=== PATIENT | male | born 1980 | race African-American/Black ===

== ENCOUNTER 2018-09-22 11:32 | Emergency (ER) | payer SELFPAY ==
--- NOTE | 2018-09-23 07:19 | RAD ---
Chest one view HISTORY: Dyspnea. FINDINGS: Cardiac silhouette is magnified by projection. Pulmonary vasculature is unremarkable. Media stinum is midline. No lobar consolidation or evidence of pneumothorax. IMPRESSION: No active cardiopulmonary abnormalities are demonstrated.
== END 2018-09-22 14:30 | disposition home or self-care (01) ==
LOC: ERS 11:32
DX: J45.901 Unspecified asthma with (acute) exacerbation (principal); F17.210 Nicotine dependence, cigarettes, uncomplicated; Z79.51 Long term (current) use of inhaled steroids
CPT/HCPCS: 71045; 94640; J7620

== ENCOUNTER 2018-10-15 23:16 | Emergency (ER) | payer SELFPAY ==
--- NOTE | 2018-10-15 23:46 | RAD ---
EXAM: Chest Two Views 10/15/2018 11:43 PM HISTORY: Shortness of breath and fever COMPARISON: None. FINDINGS: Heart: Normal in size and contour. Pulmonary vessels: Normal. Costophrenic angles: Clear. Lungs: Hyperinflated but clear Pneumothorax: None. Osseous structures:Intact. Additional findings: None. IMPRESSION: Hyperinflation without acute infiltrate.
[2018-10-16] MEDS ORDERED: predniSONE 20 MG TAB ONE (00:28)
== END 2018-10-16 00:50 | disposition home or self-care (01) ==
LOC: ERS 23:16
DX: J45.901 Unspecified asthma with (acute) exacerbation (principal); Z79.51 Long term (current) use of inhaled steroids
CPT/HCPCS: 71046; 94640; J7512; J7620

== ENCOUNTER 2019-02-15 21:16 | Inpatient (IN) | payer SELFPAY ==
[2019-02-15] MEDS ORDERED: Albuterol Sulfate 2.5 mg/3 ml Neb ONE ×5 (21:25→22:10)
[2019-02-15] MEDS ORDERED: methylPREDNISolone Sod Succ/PF 125 MG/2 ML VIAL ONE (21:26)
[2019-02-15] MEDS ORDERED: Succinylcholine Chloride 20 MG/ML 10 ml SYRINGE FS ONE (21:34)
[2019-02-15] MEDS ORDERED: Ketamine 50 MG/ML (10ML VIAL) ONE (21:36)
[2019-02-15] MEDS ORDERED: Vecuronium 10 MG VIAL ONE ×2 (21:36→22:22)
[2019-02-15] MEDS ORDERED: Magnesium 2 GM/50 ML BAG (IN WATER) ONE ×2 (21:46→22:10)
[2019-02-15] MEDS ORDERED: EPINEPHrine 1 MG/ML AMP ONE (21:51)
[2019-02-15 21:59] LABS: #Basophils 0.1 thou/uL (0.0-0.2); #Eosinphils 0.7 thou/uL (0.0-0.7); #Monocytes 1.1 thou/uL (0.11-0.59); #Neutrophils 6.4 thou/uL (1.40-6.50); %Basophils 0.9 % (0.0-1.0); %Eosinophils 5.6 % (0.0-10.0); %Lymphocytes 32.7 % (21.0-51.0); %Monocytes 9.2 % (0.0-10.0); %Neutrophils 51.7 % (42.0-75.0); Hemoglobin 15.5 g/dL (14.0-18.0); Mean Corpuscular HGB CONC 33.7 g/dL (32.0-36.0); Mean Corpuscular Hemoglobin 31.5 pg (27.0-31.0); Mean Corpuscular Volume 93.5 fL (78.0-98.0); Mean Platelet Volume 7.7 fL (7.4-10.4); Platelet Count 264 thou/uL (130-400); RBC Distribution Width 11.7 % (11.5-14.5); Red Blood Cell (RBC) Count 4.91 mill/uL (4.70-6.10); White Blood Cell (WBC) Count 12.3 thou/uL (4.8-10.8)
[2019-02-15] MEDS ORDERED: Sodium Bicarb 50 MEQ/50 ML VIAL ONE (22:08)
--- NOTE | 2019-02-15 22:10 | RAD ---
XR Chest 1 View Portable HISTORY: Shortness of breath. COMPARISON: None. FINDINGS: Heart size and mediastinum are within normal limits. The lungs are clear of infiltrates. Th ere are no significant bony findings. IMPRESSION: No active intrathoracic disease.
--- NOTE | 2019-02-15 22:11 | RAD ---
XR Chest 1 View Portable HISTORY: Intubation. Difficulty breathing COMPARISON: Earlier examination the same day. FINDINGS: Heart size and mediastinum are within normal limits for portable technique. The lungs are c lear of infiltrates. Endotracheal and NG tubes are in satisfactory position. IMPRESSION: Placement of endotracheal and NG tubes which are in satisfactory position.
[2019-02-15] MEDS ORDERED: Midazolam HCl 2 mg/2 ml Vial ONE (22:14)
[2019-02-15 22:21] LABS: ALT (SGPT) 40 U/L (8-55); AST (SGOT) 28 U/L (5-34); Albumin 5.1 g/dL (3.5-5.0); Alkaline Phosphatase 91 U/L (40-110); Anion Gap 13 mmol/L (10-20); BUN (Urea Nitrogen) 11 mg/dL (8.9-20.6); Bilirubin, Total 1.1 mg/dL (0.2-1.2); Calc. Creatinine Clearance 0 mL/min (70-130); Calcium 9.9 mg/dL (7.8-10.44); Carbon Dioxide 29 mmol/L (22-29); Chloride 102 mmol/L (98-107); Estimated GFR-MDRD Greater than 90; Globulin 3.3 g/dL (2.4-3.5); Glucose 96 mg/dL (70-105); Potassium 3.8 mmol/L (3.5-5.1); Protein, Total 8.4 g/dL (6.0-8.3); Sodium 140 mmol/L (136-145)
[2019-02-15 22:30] LABS: Bilirubin Negative (Negative); Blood, Urine Negative (Negative); Clarity Clear (Clear); Glucose, Urine (Dipstick) 70 mg/dL (Negative); Leukocyte Negative Leu/uL (Negative); Nitrite Negative (Negative); Protein, Urine (Dipstick) 10 mg/dL (Neg-Trace); Urobilinogen Normal mg/dL (Less than 2)
[2019-02-15] MEDS ORDERED: Vecuronium Bromide 50 MG in Sodium Chloride 0.9% 250 ML 250 ML IV SCH (22:30)
[2019-02-15] MEDS ORDERED: Propofol 1,000 MG/100 ML VIAL IV ONE (23:27)
[2019-02-15] MEDS ORDERED: Fentanyl BOLUS 250 ML IVPB PRN (23:36)
[2019-02-15] MEDS ORDERED: Propofol BOLUS 1,000 MG/100 ML VIAL IV PRN (23:36)
[2019-02-15] MEDS ORDERED: DISCONTINUE PREVIOUS NARCOTIC PAIN MEDICATIONS AND BENZODIAZEPINES FS SCH (23:36)
[2019-02-15] MEDS ORDERED: Morphine 2 MG/ML SYRINGE SLOW IVP PRN (23:36)
[2019-02-15] MEDS ORDERED: Famotidine/PF 20 mg/2ml Vial SLOW IVP SCH (23:45)
--- NOTE | 2019-02-16 | HP ---
HISTORY OF PRESENT ILLNESS: This is a 38-year-old male, who presented to the emergency room with extremely short of breath. He rapidly decompensated and he was intubated. I was consulted because of respiratory failure. There is no other history available. Reviewing old records, there are only old ER records available. PAST MEDICAL HISTORY: Reportedly remarkable for asthma. PAST SURGICAL HISTORY: There is no history of surgery. SOCIAL HISTORY: According to old records, he is a daily drinker and is an occasional smoker. FAMILY HISTORY: Negative for lung disease according to old records. ALLERGIES: HE HAS NO REPORTED ALLERGIES. MEDICATIONS: He has inhalers and a nebulizer at home per my discussion with the ER doctor, but medications are otherwise unknown. PHYSICAL EXAMINATION: VITAL SIGNS: When I arrived, his blood pressure was stable, but his heart rate was 130 as expected. He had an almost 6-second exhale time. GENERAL: He is chemically paralyzed and sedated. HEENT: Sclerae anicteric. NECK: Supple. LUNGS: Remarkable for extremely tight wheezes diffusely. HEART: Regular rhythm. Rapid rate. No gallop. ABDOMEN: Soft. No masses. No rigidity. EXTREMITIES: Without asymmetry or edema. NEUROLOGIC: Could not be assessed. Chest x-ray showed no infiltrates. IMPRESSION: Status asthmaticus with respiratory failure. PLAN: Plan will be for permissive hypercapnia and continuous paralysis. Lab work and blood gases have been reviewed. I would not repeat a blood gas until tomorrow morning. I was able to increase his inspiratory flow, increase his tidal volume, and increase his rate a little bit and I do believe he is completely exhaling at this time. He is on tidal volume of 400, rate of 15, inspiratory of 65, PEEP of 3, 50% FiO2. It is imperative that we keep him paralyzed. Reviewing the lab, there is nothing really remarkable on his lab other than hyperproteinemia, but he does not have an elevated globulin fraction. I suspect there is some component of intravascular volume depletion and I doubt his asthma just started today. I suspect he is significantly mucus plugged from several days of asthma, like most young people are when they present with severe asthma in the emergency room. I have recommended an additional 2 g of magnesium, giving him 4 g total. He will receive at least 2 L wide open of IV fluids in the emergency room and then receive 200 mL an hour of fluid. He will go upstairs on IV Medrol, q.2 hours nebulizer treatments and we will reassess him in the morning. Again, it is imperative that we keep him paralyzed and I have relayed this to the nurses. Job ID: [id number]
[2019-02-16] MEDS: Albuterol Sulfate 2.5 mg/3 ml Neb NEB SCH ×12 (00:31→22:10)
[2019-02-16] MEDS: Sodium Chloride 0.9% 1,000 ML IV SCH ×4 (00:43→17:31)
[2019-02-16 01:50] LABS: Lactic Acid 3.7 mmol/L (0.5-2.2)
[2019-02-16] MEDS: Lorazepam 2 MG/ML VIAL SLOW IVP PRN ×2 (03:14→07:58)
[2019-02-16 04:44] LABS: #Lymphocytes 0.9 thou/uL (1.20-3.40); #Monocytes 0.6 thou/uL (0.11-0.59); %Basophils 0.1 % (0.0-1.0); %Eosinophils 0.2 % (0.0-10.0); %Lymphocytes 4.7 % (21.0-51.0); %Monocytes 3.2 % (0.0-10.0); %Neutrophils 91.7 % (42.0-75.0); Hemoglobin 14.1 g/dL (14.0-18.0); Mean Corpuscular Hemoglobin 31.2 pg (27.0-31.0); Mean Corpuscular Volume 94.4 fL (78.0-98.0); Mean Platelet Volume 7.7 fL (7.4-10.4); Platelet Count 248 thou/uL (130-400); RBC Distribution Width 11.7 % (11.5-14.5); Red Blood Cell (RBC) Count 4.52 mill/uL (4.70-6.10); White Blood Cell (WBC) Count 19.7 thou/uL (4.8-10.8)
[2019-02-16] MEDS: Propofol 1,000 MG/100 ML VIAL IV PRN ×4 (04:44→17:43)
[2019-02-16] MEDS: methylPREDNISolone Sod Succ 40 MG VIAL IVP SCH ×4 (05:39→23:40)
[2019-02-16 06:01] LABS: Anion Gap 15 mmol/L (10-20); BUN (Urea Nitrogen) 8 mg/dL (8.9-20.6); Calc. Creatinine Clearance 133 mL/min (70-130); Calcium 7.7 mg/dL (7.8-10.44); Carbon Dioxide 22 mmol/L (22-29); Chloride 105 mmol/L (98-107); Estimated GFR-MDRD Greater than 90; Glucose 146 mg/dL (70-105); Potassium 4.1 mmol/L (3.5-5.1); Sodium 138 mmol/L (136-145)
[2019-02-16 07:17] LABS: Actual Bicarbonate (HCO3a) 23.1 mEq/L (22-28); Base Excess (BEa) -7.8 mEq/L (-2.0 to +3.0); O2 Tension (PaO2) 128.7 mmHg (80.0-100.0); Potassium - ABG Lab 4.75 mmol/L (3.70-5.30)
[2019-02-16 07:18] LABS: pH, Arterial 7.12 (7.35-7.45)
[2019-02-16 07:19] LABS: CO2 Tension 73.4 mmHg (35.0-45.0); Puncture Site RR
[2019-02-16] MEDS: Vecuronium Bromide 50 MG in Sodium Chloride 0.9% 250 ML 250 ML IV SCH ×2 (07:57→18:25)
[2019-02-16] MEDS: Enoxaparin Sodium 40 MG/0.4 ML SYRINGE SC SCH (07:58)
[2019-02-16] MEDS: Famotidine/PF 20 mg/2ml Vial SLOW IVP SCH ×2 (07:59→20:44)
--- NOTE | 2019-02-16 09:15 | RAD ---
CHEST 1 VIEW: Date: 02/16/19 HISTORY: Intubated. Follow-up. COMPARISON: 02/15/19. FINDINGS: Cardiac silhouette is magnified by projection. Pulmonary vasculature unremarkable. Mediastinum is mid line. Lines and tubes appear unchanged in position. No lobar consolidation or evidence of pneumothora x. front desk monitor leads overlie the chest. IMPRESSION: Stable radiographic appearance of the chest. POS: [facility]
[2019-02-16] MEDS: fentaNYL Citrate/PF 2,000 MCG in Sodium Chloride 0.9% 60 ML IV SCH (09:33)
--- NOTE | 2019-02-16 14:16 | PRG ---
DATE OF SERVICE: 02/16/2019 SUBJECTIVE: Romero Blackwell is improved compared to last night. OBJECTIVE: VITAL SIGNS: Heart rate still 140. Blood pressure stable, expiratory time is no longer 6-7 seconds. His peak airway pressures are down in the 30s and plateaus in the high teens. GENERAL: He remains sedated and paralyzed. LUNGS: Distant, still remarkable for coarse wheezes. HEART: Regular rhythm. ABDOMEN: Soft. EXTREMITIES: Without asymmetry. DIAGNOSTIC DATA: Chest x-ray is unremarkable. Laboratory of white count 19.7, hemoglobin 14.1, platelets 248,000. Electrolytes unremarkable. IMPRESSION: Status asthmaticus, still improving. There is no evidence of pneumonia and nothing to suggest bacterial bronchitis.Will try to hold paralytics and just sedate him tomorrow. CRITICAL CARE TIME: 30 minutes. Job ID: [id number] MTDD
[2019-02-16] MEDS: Artificial Tear Sol 15 ML BOT EA EYE PRN ×2 (21:33→23:41)
[2019-02-17] MEDS: Albuterol Sulfate 2.5 mg/3 ml Neb NEB SCH ×12 (00:15→23:54)
[2019-02-17] MEDS: Propofol 1,000 MG/100 ML VIAL IV PRN ×2 (00:59→05:54)
[2019-02-17] MEDS: Sodium Chloride 0.9% 1,000 ML IV SCH ×3 (00:59→15:53)
[2019-02-17] MEDS: fentaNYL Citrate/PF 2,000 MCG in Sodium Chloride 0.9% 60 ML IV SCH ×2 (02:14→15:52)
[2019-02-17] MEDS: Artificial Tear Sol 15 ML BOT EA EYE PRN ×3 (03:59→11:33)
[2019-02-17] MEDS: methylPREDNISolone Sod Succ 40 MG VIAL IVP SCH ×4 (05:54→23:56)
[2019-02-17 08:25] LABS: Actual Bicarbonate (HCO3a) 28.2 mEq/L (22-28); Base Excess (BEa) 0.7 mEq/L (-2.0 to +3.0); CO2 Tension 59.1 mmHg (35.0-45.0); Calcium, Ionized 1.16 mmol/L (1.12-1.30); Carboxyhemoglobin (COHb) 0.3 gm% (0.0-3.0); Hemoglobin (Hb) 12.2 g/dL (14.0-18.0); O2 Tension (PaO2) 98.9 mmHg (80.0-100.0); Potassium - ABG Lab 4.63 mmol/L (3.70-5.30)
[2019-02-17] MEDS: Enoxaparin Sodium 40 MG/0.4 ML SYRINGE SC SCH (08:25)
[2019-02-17] MEDS: Famotidine/PF 20 mg/2ml Vial SLOW IVP SCH ×2 (08:25→19:54)
[2019-02-17 08:29] LABS: ALV-art Gradient 183.725 (0-20); Puncture Site RRA
[2019-02-17] MEDS ORDERED: Vecuronium Bromide 20 MG VIAL IV PRN (10:45)
[2019-02-17] MEDS ORDERED: Acetaminophen 650 MG/20.3 ML UDCUP PER TUBE PRN (10:57)
[2019-02-17] MEDS ORDERED: Vecuronium 10 MG VIAL ONE (11:09)
--- NOTE | 2019-02-17 11:33 | PRG ---
DATE OF SERVICE: 02/17/2019 SUBJECTIVE: Mr. Blackwell's family is at the bedside, mother and father. Apparently, he has been having trouble with his asthma for about the last month. During the summer time, he had no problems when using an inhaler. His friends could tell him he needs to go to the doctor, but he thought he could just work through it. OBJECTIVE: VITAL SIGNS: His heart rate 124, blood pressure 129/84, respiratory rates 15 per mechanical ventilation, and oximetry is in the high 90s. LUNGS: On exam, his expiratory time is still long, but it was shorter than it was yesterday in my opinion. Remarkable for tight wheezes. HEART: Regular rhythm. ABDOMEN: Soft. LABORATORY DATA: White count 19.7, hemoglobin 14.1, and platelets 248. Electrolytes are normal. PH 7.3, CO2 of 59, and PO2 of 98. IMPRESSION: Respiratory failure. We will try withholding the vecuronium drip. I will put a p.r.n., but hopefully we can ventilate him successfully without stacking with p.r.n. paralytics and ongoing drip sedation with propofol. I met with family and answered all their questions. CRITICAL CARE TIME: 30 minutes. Job ID: [id number]
[2019-02-18] MEDS: Albuterol Sulfate 2.5 mg/3 ml Neb NEB SCH ×5 (00:18→09:00)
[2019-02-18] MEDS: Sodium Chloride 0.9% 1,000 ML IV SCH ×4 (01:47→22:35)
[2019-02-18] MEDS: Propofol 1,000 MG/100 ML VIAL IV PRN (01:47)
[2019-02-18] MEDS: fentaNYL Citrate/PF 2,000 MCG in Sodium Chloride 0.9% 60 ML IV SCH (03:56)
[2019-02-18] MEDS: methylPREDNISolone Sod Succ 40 MG VIAL IVP SCH ×4 (05:37→23:39)
[2019-02-18 07:31] VITALS: BP 123/76
[2019-02-18 08:07] LABS: Actual Bicarbonate (HCO3a) 30.9 mEq/L (22-28); Base Excess (BEa) 4.2 mEq/L (-2.0 to +3.0); CO2 Tension 55.9 mmHg (35.0-45.0); Calcium, Ionized 1.23 mmol/L (1.12-1.30); Carboxyhemoglobin (COHb) 0.6 gm% (0.0-3.0); Hemoglobin (Hb) 13.3 g/dL (14.0-18.0); O2 Tension (PaO2) 75.3 mmHg (80.0-100.0); Potassium - ABG Lab 4.44 mmol/L (3.70-5.30); pH, Arterial 7.36 (7.35-7.45)
[2019-02-18 08:12] LABS: Puncture Site L.R.
[2019-02-18 08:13] LABS: ALV-art Gradient 140.025 (0-20)
[2019-02-18] MEDS: Enoxaparin Sodium 40 MG/0.4 ML SYRINGE SC SCH (08:29)
[2019-02-18] MEDS: Famotidine/PF 20 mg/2ml Vial SLOW IVP SCH ×2 (08:29→19:50)
--- NOTE | 2019-02-18 08:35 | RAD ---
Chest one view HISTORY: Dyspnea. COMPARISON: 02/16/2019. FINDINGS: Cardiac silhouette is magnified by projection. Lines and tubes appear unchanged in position . No confluent airspace consolidation or evidence of pneumothorax. monitoring specialist leads overlie the chest. IMPRESSION: No active cardiopulmonary abnormalities are demonstrated.
--- NOTE | 2019-02-18 09:10 | PRG ---
DATE OF SERVICE: 02/18/2019 TIME SPENT: 35 minutes of critical care time. SUBJECTIVE: This patient remains intubated on mechanical ventilation. He is awake, alert, follows commands without difficulty. OBJECTIVE: VITAL SIGNS: His temperature is 98.7, O2 saturation 91%, heart rate 99, blood pressure 138/82. 24-hour intake 3683, output 4575. HEENT: Unremarkable. NECK: No adenopathy or JVD. LUNGS: Currently has no wheezing or rhonchi. CARDIAC: S1, S2. Regular. ABDOMEN: Soft, nontender. EXTREMITIES: No edema. IMAGING: His chest x-ray is clear. LABORATORY DATA: pH 7.36, pCO2 of 55, pO2 of 75 on SIMV rate 15, tidal volume 400, PEEP 3, pressure support 12, FiO2 40%. Sodium 138, potassium 4.1, chloride 105, CO2 of 22, BUN 8, creatinine 0.9, glucose 146. The patient was placed on spontaneous breathing trial and performed adequately without limitation. ASSESSMENT: 1. Status asthmaticus. 2. Acute respiratory failure, requiring mechanical ventilation. PLAN: He meets criteria for extubation. We will extubate and observe. He will continue therapy with steroids, nebulization treatments. He will begin on a diet. We will get him up in a chair as tolerated. Job ID: [id number]
[2019-02-19 04:19] LABS: #Lymphocytes 1.3 thou/uL (1.20-3.40); #Monocytes 1.4 thou/uL (0.11-0.59); #Neutrophils 10.4 thou/uL (1.40-6.50); %Eosinophils 0.1 % (0.0-10.0); %Lymphocytes 9.8 % (21.0-51.0); %Monocytes 10.5 % (0.0-10.0); %Neutrophils 79.5 % (42.0-75.0); Hemoglobin 12.9 g/dL (14.0-18.0); Mean Corpuscular HGB CONC 34.1 g/dL (32.0-36.0); Mean Corpuscular Hemoglobin 31.5 pg (27.0-31.0); Mean Corpuscular Volume 92.5 fL (78.0-98.0); Mean Platelet Volume 8.4 fL (7.4-10.4); Platelet Count 208 thou/uL (130-400); RBC Distribution Width 11.2 % (11.5-14.5); Red Blood Cell (RBC) Count 4.09 mill/uL (4.70-6.10); White Blood Cell (WBC) Count 13.1 thou/uL (4.8-10.8)
[2019-02-19 04:32] LABS: Anion Gap 13 mmol/L (10-20); BUN (Urea Nitrogen) 17 mg/dL (8.9-20.6); Calc. Creatinine Clearance 134 mL/min (70-130); Calcium 9.3 mg/dL (7.8-10.44); Carbon Dioxide 28 mmol/L (22-29); Chloride 102 mmol/L (98-107); Estimated GFR-MDRD Greater than 90; Glucose 115 mg/dL (70-105); Potassium 4.5 mmol/L (3.5-5.1); Sodium 138 mmol/L (136-145)
[2019-02-19] MEDS: methylPREDNISolone Sod Succ 40 MG VIAL IVP SCH ×2 (05:35→12:26)
[2019-02-19] MEDS: Sodium Chloride 0.9% 1,000 ML IV SCH (06:15)
[2019-02-19] MEDS: Famotidine/PF 20 mg/2ml Vial SLOW IVP SCH (09:00)
[2019-02-19 09:48] VITALS: TEMP 97.6
[2019-02-19] MEDS: Enoxaparin Sodium 40 MG/0.4 ML SYRINGE SC SCH (11:53)
--- NOTE | 2019-02-19 13:04 | EKG ---
Test Reason : HIGH HR Blood Pressure : / mmHG Vent. Rate : 148 BPM Atrial Rate : 148 BPM P-R Int : 128 ms QRS Dur : 072 ms QT Int : 336 ms P-R-T Axes : 077 077 069 degrees QTc Int : 527 ms Sinus tachycardia Otherwise normal ECG Confirmed by DAISY TREJO ([id number]) on 02/19/2019 1:04:25 PM Referred By: REX Confirmed By:DAISY TREJO
[2019-02-19 13:59] VITALS: BMI 29.7
--- NOTE | 2019-02-19 18:50 | PRG ---
DATE OF SERVICE: 02/19/2019 SUBJECTIVE: Mr. Blackwell is doing well. His peak flows over 400 now. OBJECTIVE: LUNGS: Clear. HEART: Regular rate and rhythm. ABDOMEN: Soft. IMPRESSION: Severe status asthmaticus leading up to the intubation and initial difficult mechanical ventilation. Job ID: [id number]
--- NOTE | 2019-02-19 18:54 | DIS ---
DATE OF ADMISSION: 02/15/2019 DATE OF DISCHARGE: 02/19/2019 DIAGNOSIS: Status asthmaticus. HOSPITAL COURSE: Please see history and physical for details. Briefly, Mr. Blackwell presented with severe shortness of breath. Required intubation as he decompensated quickly in the ER. Initially, when the ER doc contacted me, they were having a great deal of difficulty mechanically ventilating him. He had been given 2 g of magnesium, was given 2 more grams and continuous nebulizer treatments. By the time I arrived in the emergency room, he was starting to have audible breath sounds, but still had a peak airway pressure in the mid-to-high 50s with a plateau of 25 to 26. By the following morning, his plateau was in the teens and his peak airway pressure was in the 30s. He was extubated yesterday. He is doing well today with a peak flows of over 400. He will go home on a slow prednisone taper 40 mg for the next 5 days, then 30 mg for 5 days and then 20 mg a day. He will see me in 2 weeks in the office. He was given a prescription for nebulizer as well as ipratropium and albuterol. He was also given a rescue inhaler prescription. I encouraged him to call me if his peak flows start dropping into the 300 range. He will keep a diary of morning and evening peak flows. Job ID: [id number]
== END 2019-02-19 15:13 | disposition home or self-care (01) | DRG 208 ==
LOC: ERS 21:16 → CCU 21:48
PROVIDERS: ADMIT Internal Medicine Critical Care Medicine; ATTEND Internal Medicine Critical Care Medicine
PROC: 0BH17EZ Insertion of Endotracheal Airway into Trachea, Via Natural or Artificial Opening (ICD-10-PCS; principal; 2019-02-17)
PROC: 5A1935Z Respiratory Ventilation, Less than 24 Consecutive Hours (ICD-10-PCS; 2019-02-17)
DX: J45.902 Unspecified asthma with status asthmaticus (principal); J96.00 Acute respiratory failure, unspecified whether with hypoxia or hypercapnia
CPT/HCPCS: 36415; 71045; 80048; 80053; 81003; 82805; 83605; 85025; 87040; 87086; 90471; 90732; 93005; 93010; 94002; 94003; 94640; 94644; 94760; G0009; J0171; J1650; J2060; J2250; J2270; J2704; J2920; J2930; J3010; J3475; J3490; J7050; J7611; J7620; S0028

== ENCOUNTER 2019-03-05 13:21 | Outpatient (CLI) | payer OTHER ==
--- NOTE | 2019-03-05 13:50 | RAD ---
EXAM: Chest Two Views 03/05/2019 1:47 PM HISTORY: Dyspnea COMPARISON: February 18, 2019 FINDINGS: Heart: Normal in size and contour. Pulmonary vessels: Normal. Costophrenic angles: Clear. Lungs: No acute airspace consolidation. Pneumothorax: None. Osseous structures:Intact. Additional findings: Patient has been intervally extubated with gastric catheter removal IMPRESSION: No significant acute intrathoracic disease.
== END 2019-03-05 13:22 | disposition home or self-care (01) ==
LOC: RAD 13:21
PROVIDERS: ATTEND Internal Medicine Critical Care Medicine
DX: R06.00 Dyspnea, unspecified (principal)
CPT/HCPCS: 71046

== ENCOUNTER 2019-04-27 02:11 | Emergency (ER) | payer OTHER ==
[2019-04-27] MEDS ORDERED: predniSONE 20 MG TAB ONE (02:28)
== END 2019-04-27 03:00 | disposition home or self-care (01) ==
LOC: ERS 02:11
DX: J45.901 Unspecified asthma with (acute) exacerbation (principal); Z79.899 Other long term (current) drug therapy
CPT/HCPCS: 94640; J7512; J7620

== ENCOUNTER 2019-05-06 12:49 | Outpatient (CLI) | payer OTHER ==
--- NOTE | 2019-05-06 15:09 | RAD ---
PA AND LATERAL VIEWS CHEST: Date: 05/06/2019 HISTORY: Dyspnea. COMPARISON: 03/05/2019. FINDINGS: The heart size is normal. The lungs are well expanded without lobar consolidation, pneumothoraces, or pleural effusions. No acute osseous abnormalities are seen. IMPRESSION: Stable exam. No acute process. POS: [facility]
== END 2019-05-06 12:50 | disposition home or self-care (01) ==
LOC: RAD 12:49
PROVIDERS: ATTEND Internal Medicine Critical Care Medicine
DX: R06.00 Dyspnea, unspecified (principal)
CPT/HCPCS: 71046

== ENCOUNTER 2024-10-02 21:30 | Emergency (ER) | payer OTHER, SELFPAY ==
[2024-10-02] MEDS ORDERED: Ketorolac Tromethamine 30 MG (1 mL) VIAL ONE (22:52)
[2024-10-02] MEDS ORDERED: predniSONE 20 MG TAB ONE (22:53)
[2024-10-02] MEDS ORDERED: Albuterol 200 PUFF INH INH SCH (23:15)
== END 2024-10-02 23:42 | disposition home or self-care (01) ==
LOC: ERS 21:30
DX: J45.901 Unspecified asthma with (acute) exacerbation (principal); E86.0 Dehydration; Z79.51 Long term (current) use of inhaled steroids
CPT/HCPCS: 96361; 96374; J1885; J7512